=== PATIENT | female | born 1950 | race Caucasian/White ===

== ENCOUNTER 2024-09-10 09:54 | Outpatient (RCR) | payer MEDICARE, OTHER, SELFPAY ==
[2024-09-10 10:14] VITALS: BP 145/83
[2024-09-10] MEDS: RECLAST 100 IV (10:26)
== END 2024-09-11 10:32 | disposition home or self-care (01) ==
LOC: OID 09:54
PROVIDERS: ATTENDING PHYSICIAN Internal Medicine Endocrinology, Diabetes & Metabolism
DX: M81.0 Age-related osteoporosis without current pathological fracture (principal)
CPT/HCPCS: 96365; J3489